=== PATIENT | female | born 1970 | race Two or more races ===

== ENCOUNTER 2018-07-10 09:08 | Day surgery (SDC) | payer BC, OTHER ==
[2018-07-10] MEDS ORDERED: HYDROmorphone 1 MG/ML 1 ML SYRINGE IVP STA (09:23)
[2018-07-10 09:35] LABS: Mean Platelet Volume 6.8; Platelet Count 309 k/uL (150-450)
[2018-07-10 09:37] LABS: INR 0.9 (<1.2); Prothrombin Time 10.1 sec (9.0-12.0)
--- NOTE | 2018-07-10 10:52 | CT ---
EXAMINATION TYPE: CT biopsy liver DATE OF EXAM: 07/10/2018 COMPARISON: NONE HISTORY: Elevated LFTs CT DLP: 1115mGycm The procedure was explained to the patient. The risks, complications, benefits, and alternatives wer e discussed and any questions were answered. Informed consent was obtained. Patient was placed supi ne on the CT table and prepped and draped in the usual sterile fashion. All elements of maximal barrier and sterile technique utilized. Utilizing CT guidance, an 18 gauge core biopsy needle access into the posterior segment right lobe o f the liver was achieved and a single 18 gauge core sample was obtained. The patient was stable thro ughout the procedure and remained stable upon discharge. IMPRESSION: 1. Successful 18 gauge core biopsy of the liver.
[2018-07-10 14:05] VITALS: RESP 16
[2018-07-10] MEDS ORDERED: diphenhydrAMINE 50 MG CAP PO STA (14:26)
[2018-07-10 14:33] VITALS: TEMP 99
[2018-07-10 16:17] VITALS: BP 121/84; PULSE 78
== END 2018-07-10 15:25 | disposition home or self-care (01) ==
LOC: RADPROMAIN 09:08
DX: K76.0 Fatty (change of) liver, not elsewhere classified (principal)
CPT/HCPCS: 85049; 85610; 88313; 88307; 96374; 36415; 47000; 77012; J1170

== ENCOUNTER → 2019-09-25 | Outpatient (CLI) | payer OTHER ==
--- NOTE | 2019-09-25 20:22 | CT ---
EXAMINATION TYPE: CT abdomen w con DATE OF EXAM: 09/25/2019 COMPARISON: None INDICATION: Upper abdominal pain DLP: 734 mGycm, Automated exposure control for dose reduction was used. CONTRAST: 100 mL of Isovue 300. Study performed with Oral Contrast TECHNIQUE: Axial images were obtained from above the diaphragm to the iliac crests in the axial plane at 5 mm thick sections. Reconstructed images are reviewed on the computer in the coronal plane. FINDINGS: Limited CT sections are obtained the lung bases. The lung bases are clear. CT ABDOMEN: Liver: There is mild to moderate fatty infiltration liver. No discrete masses are evident. Spleen: Normal Pancreas: Normal Adrenal glands: The adrenal glands are normal. Gallbladder: Surgically absent Kidneys: No masses are evident. No hydronephrosis is present. No cysts are present. Delayed images were obtained through the kidneys, which remain unremarkable. Aorta: Vascular calcification is within the aorta. Inferior vena cava: Normal. Loops of bowel distended with oral contrast appear unremarkable. Colon is without contrast. IMPRESSIONS: 1. Mild to moderate fatty infiltration liver. 2. No suspicious acute changes within the abdomen.
== END | disposition home or self-care (01) ==
LOC: RADCTMAIN 12:43
PROVIDERS: ATTEND Family Medicine
DX: K76.0 Fatty (change of) liver, not elsewhere classified (principal)
CPT/HCPCS: 74160; Q9967